=== PATIENT | female | born 1960 | race Caucasian/White ===

== ENCOUNTER 2020-11-19 07:25 | Day surgery (SDC) | payer OTHER ==
[~2020-11-19] VITALS: Ht 167.6 cm; Wt 94.8 kg
[2020-11-19 08:09] VITALS: BP 147/66
[2020-11-19 17:49] VITALS: BP 146/78
== END 2020-11-19 17:30 | disposition home or self-care (01) ==
LOC: DS 07:25 → MA 09:00 → DS 09:00
PROVIDERS: ATTEND Surgery
DX: D24.2 Benign neoplasm of left breast (principal); E11.9 Type 2 diabetes mellitus without complications; M19.90 Unspecified osteoarthritis, unspecified site; E66.9 Obesity, unspecified; Z68.33 Body mass index [BMI] 33.0-33.9, adult; Z79.899 Other long term (current) drug therapy
CPT/HCPCS: 77066; 82962; 88344; J0131; J0330; J0690; J0694; J2001; J2250; J2405; J2704; J2710; J3010; J3490; J7030

== ENCOUNTER 2020-11-28 17:01 | Emergency (ER) | payer OTHER ==
[~2020-11-28] VITALS: Ht 167.6 cm; Wt 93.4 kg
[2020-11-28 17:10] VITALS: BP 150/70
== END 2020-11-28 18:21 | disposition home or self-care (01) ==
LOC: ED 17:01
DX: T81.49XA Infection following a procedure, other surgical site, initial encounter (principal); E11.9 Type 2 diabetes mellitus without complications; Z98.890 Other specified postprocedural states